=== PATIENT | male | born 1985 | race Two or more races ===

== ENCOUNTER → 2022-07-07 21:09 | Outpatient (REF) | payer MEDICAID, SELFPAY | LOC: HO.SL 21:09 | PROVIDERS: PCP Internal Medicine; Visit Provider Nurse Practitioner Primary Care | DX: R06.83 Snoring (principal); R06.81 Apnea, not elsewhere classified; R51.9 Headache, unspecified | CPT/HCPCS: 95811 ==

== ENCOUNTER → 2022-09-21 14:40 | Outpatient (BNVA) | payer MEDICAID, SELFPAY | PROVIDERS: PCP Internal Medicine; Visit Provider Nurse Practitioner Family | DX: G47.33 Obstructive sleep apnea (adult) (pediatric) (principal) | CPT/HCPCS: 99202 ==

== ENCOUNTER 2022-11-28 08:32 | Outpatient (REF) | payer MEDICAID, SELFPAY ==
[2022-11-28 11:45] LABS: MANUAL DIFF FLAG NO
[2022-11-28 11:58] LABS: Basophils Absolute Auto 0.1 X10*3/uL (0.0-0.2); Basophils Percent Auto 0.5 % (0-2); Eosinophils Absolute Auto 0.2 X10*3/uL (0.0-0.4); Eosinophils Percent Auto 2.2 % (0-4); Hematocrit 43.7 % (42.0-52.0); Hemoglobin 14.2 g/dl (14.0-18.0); Imm Gran Abs Auto 0.08 X10*3/uL (0.00-0.03); Imm Gran Pct Auto 0.8 % (0.0-0.4); Lymphocytes Absolute Auto 2.5 X10*3/uL (1.2-4.9); Lymphocytes Percent Auto 24.2 % (20-40); Mean Corpuscular HGB Conc 32.5 g/dl (31.0-36.0); Mean Corpuscular Hemoglobin 26.9 pg (27.0-33.0); Mean Corpuscular Volume 82.9 fL (80.0-98.0); Mean Platelet Volume 12.5 fL (9.4-12.4); Monocytes Absolute Auto 0.8 X10*3/uL (0.1-1.2); Monocytes Percent Auto 7.8 % (2-11); Neutrophils Absolute Auto 6.7 x10*3/uL (2.0-8.3); Neutrophils Percent Auto 64.5 % (45-73); Platelet Count 216 X10*3/uL (160-400); Red Blood Count 5.27 X10*6/uL (4.60-5.80); Red Cell Distribution Width 14.1 % (11.0-16.0); White Blood Count 10.4 X10*3/uL (4.8-10.8)
[2022-11-28 12:28] LABS: Alanine Aminotransferase 68 U/L (0-40); Albumin Level 4.1 g/dL (3.5-5.0); Alkaline Phosphatase 53 U/L (39-117); Anion Gap 13 (12-20); Aspartate Amino Transferase 40 U/L (5-37); Bilirubin Direct 0.2 mg/dL (0.0-0.5); Bilirubin Total 0.6 mg/dL (0.0-1.0); Blood Urea Nitrogen 11 mg/dL (9-16); Calcium 9.3 mg/dL (8.4-10.2); Carbon Dioxide 24 mmol/L (22-29); Chloride 102 mmol/L (96-108); Cholesterol 216 mg/dL (<200); Estimated Glomerular Filt Rate > 60; Glucose Random 123 mg/dL (60-115); HDL Cholesterol 38 mg/dL (>40); LDL Cholesterol Calculated 155 mg/dL (<100); Potassium 3.9 mmol/L (3.3-5.1); Sodium 135 mmol/L (135-145); Triglycerides 118 mg/dL (<150)
[2022-11-28 12:31] LABS: TSH reflex Free T4 1.04 uIU/mL (0.32-4.0)
[2022-11-28 13:03] LABS: Creatinine Urine 38.19 mg/dL; Microalbumin Urine < 5.0 mg/L
[2022-11-29 07:58] LABS: ~HepC Num1 0.16 S/CO (0.00-0.79); ~Hepatitis C Antibody Nonreactive (Nonreactive)
[2022-11-29 15:44] LABS: HIV RNA PCR Qn Copies NOT DETECTED copies/mL (NOT DETECTED); HIV RNA PCR Qn Log Copies NOT DETECTED (NOT DETECTED)
== END 2022-11-28 08:33 | disposition home or self-care (01) ==
LOC: HO.HHCL 08:32
PROVIDERS: Visit Provider Internal Medicine
DX: E11.65 Type 2 diabetes mellitus with hyperglycemia (principal)
CPT/HCPCS: 36415; 80048; 80061; 80076; 82043; 84443; 85025; 86803; 87536

== ENCOUNTER 2023-02-06 11:16 | Outpatient (AMB) | payer MEDICAID, SELFPAY ==
--- NOTE | 2023-02-06 11:20 | A.OFFVIS_ITS ---
Intake Vital Signs 02/06/23 11:22 Height 5 ft 11 in Weight 298 lb BMI 41.6 BP 132/62 Blood Pressure Location Lt brachial Position Sitting Pulse 97 Pulse Source Pulse Oximeter Pulse Oximetry (%) 97 Oxygen Delivery Method Room Air Intake Visit Reasons: 3M severe sleep apnea - Confirmed Intake Note: F/U BENEDICTO, asking for a new nasal mask Manager Distribution Required: No Allergies No Known Allergies Allergy (Verified 02/06/23 11:21) HPI HPI Comments History of Present Illness Details 37 y/o male patient presents for follow up of BENEDICTO on CPAP. He is on CPAP at [id number]. Pt reports he has small nasal mask and it is much comfortable and he sleeps better with it. He wakes up refreshed and feel much awake and not tired during daytime. The CPAP compliance and therapy response (01/07/23-02/05/23) reviewed. The usage days 93% and the average usage hours 4 hrs and 40 min. The AHI was 2.0/hr. He was sick for couple of days and could not use CPAP because of congestion. He changes his filter every two weeks and clean mask and tubing regularly. [facility] Family History Mother Diabetes Social History (Updated 02/06/23 @ 11:22 by Denise Pelayo CMA) Alcohol intake: never Patient Tobacco Use Status: Never used Tobacco Physical Exam Vital Signs: Last Vital Signs Pulse 97 02/06/23 11:22 BP 132/62 02/06/23 11:22 Pulse Ox 97 02/06/23 11:22 Oxygen Delivery Method Room Air 02/06/23 11:22 BMI result Body Mass Index 41.6 Const General: cooperative Nutritional Appearance: obese Orientation/consciousness: patient oriented x3 Neck Neck: Yes full ROM and Yes supple Resp Effort & Inspection: normal respiratory effort and able to speak in complete sentences Neuro General: patient oriented x3, gait normal and moves all extremities Cranial nerves: Yes Normal facial strength present, Yes Midline tongue present, Yes Symmetric palate elevation present, Yes Ability to bilaterally rotate head present and Yes Ability to bilaterally elevate shoulders present Cognition (Neuro): normal cognition Gait exam (Neuro): Normal gait present Motor exam (neuro): 5/5 motor strength present throughout, Pronator motor function not present and no tremor noted Psych Appearance: grossly normal Mental Status: mental status grossly normal Speech and movement: Normal speech and movement present Affect: normal affect Attitude: cooperative Assessment & Plan Assessment & Plan (1) BENEDICTO on CPAP: Comment: Severe degree of sleep apnea. The AHI was 70/hr and oxygen brian was 82%. Code(s): G47.33 - Obstructive sleep apnea (adult) (pediatric) Plan Continue to use CPAP at [id number] as patient experiences good clinical effects. Stressed compliance, use CPAP nightly and more than 4 hours. Wt reduction advised. Coding Level of Care Code Est Pt Level 3 (44273) Diagnoses BENEDICTO on CPAP G47.33
[2023-02-06 11:22] VITALS: BP 132/62; PULSE 97; O2SAT 97; BMI 41.6
== END 2023-02-06 11:36 | disposition home or self-care (01) ==
PROVIDERS: PCP Internal Medicine; Visit Provider Nurse Practitioner Family
DX: G47.33 Obstructive sleep apnea (adult) (pediatric) (principal)
CPT/HCPCS: 99213

== ENCOUNTER → 2023-02-06 11:16 | Outpatient (BNVA) | payer MEDICAID, SELFPAY | PROVIDERS: PCP Internal Medicine; Visit Provider Nurse Practitioner Family | DX: G47.33 Obstructive sleep apnea (adult) (pediatric) (principal) | CPT/HCPCS: 99212 ==

== ENCOUNTER 2024-02-21 14:44 | Outpatient (AMB) | payer OTHER, SELFPAY ==
--- NOTE | 2024-02-21 14:48 | A.OFFVIS_ITS ---
Vital Signs 02/21/24 14:50 Height 5 ft 11 in Weight 286 lb BMI 39.9 BP 130/82 Blood Pressure Location Rt brachial Position Sitting Intake Visit Reasons: 1 yr f/u - BENEDICTO Intake Note: Patient presents for BENEDICTO Allergies No Known Allergies Allergy (Verified 02/21/24 14:49) HPI Comments Details: 37 y/o male patient presents for follow up of BENEDICTO on CPAP. He is on CPAP at [id number]. Pt reports he has small nasal mask and it is much comfortable and he sleeps better with it. He wakes up refreshed and feel much awake and not tired during daytime. The CPAP compliance and therapy response (11/23/23-02/20/24) reviewed. The usage days 97% and the average usage hours 7 hrs and 29 min. The AHI was 0.9/hr. He changes his filter every two weeks and clean mask and tubing regularly. Glipizide and metformin in one combo pill 600mg (metformin + Glipizide)= Metaglip Ozempic 1x week .25 lost 10lbs over 1 month, he is working on weight reduction. Walking daily, 30min, otherwise he is doing well. PFSH Family History Mother Diabetes Social History Alcohol intake: never Patient Tobacco Use Status: Never used Tobacco Review of Systems Const All systems reviewed & are unremarkable except as noted in HPI and below Physical Exam Vital Signs: Last Vital Signs BP 130/82 02/21/24 14:50 BMI result Body Mass Index 39.9 Const General: cooperative, comfortable and no acute distress Nutritional Appearance: obese (patient lost 10 lbs in one month.) Orientation/consciousness: patient oriented x3 Eyes Pupils: Equal, round and reactive pupils present Neck Neck: Yes full ROM Resp Effort & Inspection: normal respiratory effort and able to speak in complete sentences Neuro General: patient oriented x3 Cranial nerves: Yes CN's II-XII intact bilaterally, Yes Facial sensation intact/muscles of mastication intact, Yes Equal, round and reactive pupils pre sent, Yes Normal accommodation reflex present, Yes Midline tongue present, Yes Symmetric palate elevation present, Yes Ability to bilaterally rotate head present and Yes Ability to bilaterally elevate shoulders present Gait exam (Neuro): Normal gait present Motor exam (neuro): 5/5 motor strength present throughout Deep tendon reflexes (DTR's): Right triceps reflex intensity grade: 2+, Left triceps reflex intensity grade: 2+, Rt Biceps (C5, C6): 2+, Left biceps reflex intensity grade: 2+, Right brachioradialis reflex intensity grade: 2+, Left brachioradialis reflex intensity grade: 2+, Right patellar reflex intensity grade: 2+ and Left patellar reflex intensity grade: 2+ Coordination: [id number] test normal Results Reviewed Results Reviewed: CPAP use: 02/2024 The usage days 97% and the average usage hours 7 hrs and 29 min. The AHI was 0.9/hr. Autoset pressures [id number]. Assessment & Plan Assessment & Plan (1) BENEDICTO on CPAP: Comment: Severe degree of sleep apnea. The AHI was 70/hr and oxygen brian was 82%. Code(s): G47.33 - Obstructive sleep apnea (adult) (pediatric) Category: Medical (2) Obesity (BMI 30-39.9): Code(s): E66.9 - Obesity, unspecified Category: Medical Plan: Plan BENEDICTO patient is on CPAP and compliant with his nightly use, cleans his equipment. HTN is managed with 2 medications. T2DM managed by Metaglip, per PcP. Obesity Patient advised to reduce Caloric intake BMI is 39.9, he has lost 10lbs in one month on Ozempic. Walks daily for 30min, meal prep. Pt seen by Anahi RING in coordination w/ myself PEG Victoria- VENUS, I agree with the above documentation and plan. Coding Level of Care Code Est Pt Level 3 (60848) Diagnoses BENEDICTO on CPAP G47.33 Obesity (BMI 30-39.9) E66.9
[2024-02-21 14:50] VITALS: BP 130/82; BMI 39.9
== END 2024-02-21 15:21 | disposition home or self-care (01) ==
PROVIDERS: PCP Internal Medicine; Visit Provider Physician Assistant Medical
DX: G47.33 Obstructive sleep apnea (adult) (pediatric) (principal); E66.9 Obesity, unspecified; Z68.39 Body mass index [BMI] 39.0-39.9, adult
CPT/HCPCS: 99213

== ENCOUNTER → 2024-02-21 14:44 | Outpatient (BNVA) | payer OTHER, SELFPAY | PROVIDERS: Absent Provider Physician Assistant Medical; PCP Internal Medicine; Visit Provider Psychiatry & Neurology Neurology | DX: G47.33 Obstructive sleep apnea (adult) (pediatric) (principal); E66.9 Obesity, unspecified; Z99.89 Dependence on other enabling machines and devices | CPT/HCPCS: 99212 ==

== ENCOUNTER 2024-07-23 08:18 | Outpatient (REF) | payer OTHER, SELFPAY ==
[2024-07-23 12:25] LABS: Alanine Aminotransferase 39 U/L (0-40); Albumin Level 4.2 g/dL (3.5-5.0); Alkaline Phosphatase 51 U/L (39-117); Anion Gap 10 (12-20); Aspartate Amino Transferase 30 U/L (5-37); Bilirubin Total 0.6 mg/dL (0.0-1.0); Blood Urea Nitrogen 13 mg/dL (9-16); Calcium 9.5 mg/dL (8.4-10.2); Carbon Dioxide 30 mmol/L (22-29); Chloride 101 mmol/L (96-108); Cholesterol 224 mg/dL (<200); Estimated Glomerular Filt Rate > 60; Glucose Random 103 mg/dL (60-115); HDL Cholesterol 46 mg/dL (>40); LDL Cholesterol Calculated 154 mg/dL (<100); Potassium 4.6 mmol/L (3.3-5.1); Sodium 136 mmol/L (135-145); Total Protein 8.3 g/dL (6.5-8.0); Triglycerides 122 mg/dL (<150)
[2024-07-23 12:26] LABS: Creatinine Urine 101.63 mg/dL; Microalbum/Creatinine Ratio Ur 18.6 ug/mg cr (<30)
== END 2024-07-23 08:19 | disposition home or self-care (01) ==
LOC: HO.HHCL 08:18
PROVIDERS: Visit Provider Internal Medicine
DX: I10 Essential (primary) hypertension (principal); E11.65 Type 2 diabetes mellitus with hyperglycemia
CPT/HCPCS: 36415; 80053; 80061; 82043; 82570

== ENCOUNTER 2025-03-02 15:16 | Outpatient (AMB) | payer OTHER, SELFPAY ==
--- NOTE | 2025-03-02 15:26 | MHC.OFFVIS ---
Vital Signs 03/02/25 15:30 Weight 276 lb BP 140/84 H Blood Pressure Location Lt brachial Position Sitting Pulse 101 H Pulse Source Pulse Oximeter Pulse Oximetry (%) 95 Oxygen Delivery Method Room Air Intake Visit Reasons: 1 yr f/u - BENEDICTO Information Officer Required: No Accompanied by: Self / Same As Patient Allergies No Known Allergies Allergy (Verified 03/02/25 15:31) HPI Comments Details: 39 y/o male presents for follow up of BENEDICTO on CPAP therapy. BENEDICTO compliance report (01/2025- 01/2025) reviewed with pt. The usage days 90/90 days and 100%, average use is hours 7 hrs and 13 min. Press are [id number] and Leaks [id number], AHI 0.9/hr He washes his mask, rinses the hoses, changes filters and fills reservoir with water. Pt reports since switching to the nasal pillows he sleeps more comfortably and the quality of his sleep has improved. He wakes up refreshed and feel much awake and not tired during daytime. He has T2DM managed with metformin 500mg po BID and Ozempic 1x/week. He is motivated to lose weight, walks for 30min daily. Drinks plenty of water. Mood is pleasant. Memory is stable. Denies morning headaches, RLS symptoms, parasomnias, acid reflux, bruxism. PFSH Family History Mother Diabetes Social History Alcohol intake: never Patient Tobacco Use Status: Never used Tobacco Physical Exam Vital Signs: Last Vital Signs Pulse 101 H 03/02/25 15:30 BP 140/84 H 03/02/25 15:30 Pulse Ox 95 03/02/25 15:30 Oxygen Delivery Method Room Air 03/02/25 15:30 Const General: cooperative, comfortable and no acute distress Nutritional Appearance: obese (patient lost 10 lbs in one month.) Orientation/consciousness: patient oriented x3 Eyes Pupils: Equal, round and reactive pupils present Neck Neck: Yes full ROM Resp Effort & Inspection: normal respiratory effort and able to speak in complete sentences Neuro General: patient oriented x3 and moves all extremities Cranial nerves: Yes CN's II-XII intact bilaterally, Yes Facial sensation intact/muscles of mastication intact, Yes Equal, round and reactive pupils present, Yes Normal accommodation reflex present, Yes Midline tongue present, Yes Symmetric palate elevation present, Yes Ability to bilaterally rotate head present and Yes Ability to bilaterally elevate shoulders present Gait exam (Neuro): Normal gait present Motor exam (neuro): 5/5 motor strength present throughout Deep tendon reflexes (DTR's): Right triceps reflex intensity grade: 2+, Left triceps reflex intensity grade: 2+, Rt Biceps (C5, C6): 2+, Left biceps reflex intensity grade: 2+, Right brachioradialis reflex intensity grade: 2+, Left brachioradialis reflex intensity grade: 2+, Right patellar reflex intensity grade: 2+ and Left patellar reflex intensity grade: 2+ Coordination: [id number] test normal Psych Appearance: grossly normal Thought process: Normal thought process present Results Reviewed Results Reviewed: BENEDICTO compliance report (01/2025- 01/2025) reviewed with pt. The usage days 90/90 days and 100%, average use is hours 7 hrs and 13 min. Press are [id number] and Leaks [id number], AHI 0.9/hr He washes his mask, rinses the hoses, changes filters and fills reservoir with water. Assessment & Plan Assessment & Plan (1) BENEDICTO on CPAP: Comment: Severe degree of sleep apnea. The AHI was 70/hr and oxygen brian was 82%. Code(s): G47.33 - Obstructive sleep apnea (adult) (pediatric) Category: Medical (2) Obesity (BMI 30-39.9): Code(s): E66.9 - Obesity, unspecified Category: Medical Plan: Plan BENEDICTO patient is on CPAP and compliant and has good refreshed sleep. T2DM managed with metformin, HTN managed with 2 BP meds, per pcp. BMI is elevated, will refer to weight management for consultation if amenable. Obesity Patient advised to reduce caloric intake BMI is 39.9, he has lost 10lbs in one month on Ozempic. Walks daily for 30min, meal prep. Patient Instructions: Sleep Hygiene provided: set a scheduled bedtime and wake time to help regulate the circadian rhythm and balance the release of pituitary hormones. Sleep in a dark room, temperatures below 68 degrees, and no devices n bed. Limit caffeinated products 6 hours prior to bed, and limit fluids 2-4 hours prior to bed. Gentle night yoga, diffusing essential oils, and playing soft music can be relaxing. Coding Level of Care Code Est Pt Level 4 (90534) Diagnoses BENEDICTO on CPAP G47.33 Obesity (BMI 30-39.9) E66.9
[2025-03-02 15:30] VITALS: BP 140/84; PULSE 101; O2SAT 95
--- OUTSIDE RECORDS SUMMARY | 2025-03-02 18:22 | XMS_ITS | Encounter Summary ---
Author Organization [employer] Address [address] [facility] [address] [place] [address] Care Team Providers Care Web Development Intern Name Role Phone Mercedes Ku MD Primary Care Provide r Encounter Details Date Type Department Care Team (Latest Contact Info) Description 11/13/2018 [facility] CONVERSIONS Dental, Provider, DDS Social History Tobacco Use Types Packs/Day Years Used Date Smoking Tobacco: Never Assessed Sex and Gender Information Value Date Recorded Sex Assigned at Male 01/30/2022 10:32 AM EDT Legal Sex Male 10:32 AM EDT Gender Identity Male 01/30/2022 10:32 AM EDT Sexual Orientation Straight 01/30/2022 10 :32 AM EDT documented as of this encounter Plan of Treatment Not on file documented as of this encounter Visit Diagnoses Not on filedocumented in this encounter Care Teams Web Development Intern Relationship Specialty Start Date End Date Mercedes Ku MD [address] [place] [id number] PCP - General Family Medicine 09/16/19 documented as of this encounter
--- OUTSIDE RECORDS SUMMARY | 2025-03-02 18:22 | XMS_ITS | Encounter Summary ---
Author Organization [employer] Address [address] [facility] [address] [place] [address] Care Team Providers Care Marine Mammal Trainer Name Role Phone Mercedes Ku MD Primary Care Provide r Encounter Details Date Type Department Care Team (Latest Contact Info) Description 03/09/2021 Abstract [facility] CONVERSIONS Dental, Provider, DDS Social [...] on filedocumented in this encounter Care Teams Marine Mammal Trainer Relationship Specialty Start Date End Date Mercedes Ku MD [address] [place] [id number] PCP - General Family Medicine 09/16/19 documented as of this encounter
--- OUTSIDE RECORDS SUMMARY | 2025-03-02 18:23 | XMS_ITS | Encounter Summary ---
Author Organization [employer] Address [address] [place] [address] Care Team Providers Care Airframe And Power Plant Mechanic Name Role Phone Mercedes Ku MD Primary Care Provide r Reason for Visit * Reason Comments Med Refill Encounter Details Date Type Department Care Team (Late st Contact Info) Description 03/26/2023 Refill [facility] [address] [place] [address] Mercedes Ku MD [address] [place] [address] Diabetes mellitus type 2 in obese (CMS/HCC) ; Allergic rhinitis, unspecified seasonality, unspecified trigger Social History Tobacco Use Types Packs/Day Years Used Date Smoking Tobacco: Never Passive Smoke Exposure: Never Smokeless Tobacco: Never Alcohol Use Standard Drinks/Week Comments Yes 0 (1 standard drink = 0.6 oz pur e alcohol) oca PHQ-2 Answer Date Recorded Patient Health Questionnaire-2 Score 0 09/11/2022 Housing Stability Answer Date Recorded What is your housing situation today? I am not s ure 01/16/[address] you li ve. Do you have problems with any of the following? None of the above 01/16/2023 Food Insecurity Answer Date Recorded Within the past 12 months, y ou worried that your food would run out before you got money to buy more: Never True 01/16/2023 Within the past 12 months,th e food you bought just didn't last and you didn't have enough money to get more: Never True Transportation Answer Date Recorded In the past 12 months, has l ack of transportation kept you from medical appts, meetings, work or from getting things needed for daily living? No 01/16/2023 Utilities Answer Date Recorded In the past 12 months, has t he electric, gas, oil or water company threatened to shut off services in your home? No 01/16/2023 Depression Answer Date Recorded Patient Health Questionnaire-2 Score 0 09/11/2022 Sex and Gender Information Value Date Recorded Sex Assigned at Male 01/30/2022 10:32 AM EDT Legal Sex Male 10:32 AM EDT Gender Identity Male 01/30/2022 10:32 AM EDT Sexual Orientation Straight 01/30/2022 10 :32 AM EDT documented as of this encounter Plan of Treatment Not on file documented as of this encounter Visit Diagnoses Diagnosis Diabetes mellitus type 2 in obese Type II or unspecified type diabetes mellitus without mention of complication, not stated as uncontrolled Allergic rhinitis, unspecified seasonality, unspecified trigger documented in this encounter Care Teams Airframe And Power Plant Mechanic Relationship Specialty Start Date End Date Mercedes Ku MD [address] [place] [address] PCP - General Family Medicine 09/16/19 documented as of this encounter
--- OUTSIDE RECORDS SUMMARY | 2025-03-02 18:23 | XMS_ITS | Encounter Summary ---
Author Organization [employer] Address [address] [place] [address] Care Team Providers Care Steam Hoist Operator Name Role Phone Mercedes Ku MD Primary Care Provide r Encounter Details Date Type Department Care Team ([facility] st Contact Info) Description 08/21/2024 Orders Only [facility] [address] [place], [place] [phone] Mercedes Ku MD [address] [place] [address] Social History Tobacco Use Types Packs/Day Years Used Date Smoking Tobacco: Never Passive Smoke Exposure: Never Smokeless Tobacco: Never Alcohol Use Standard Drinks/Week Comments Yes 0 (1 standard drink = 0.6 oz pur e alcohol) oca Alcohol Answer Date Recorded Frequency of Alcohol Consumption Not on file 01/30/2024 Average Number of Drinks Not on file 024 Frequency of Binge Drinking Not on file 01/02 Score 0 01/30/2024 Depression Answer Date Recorded Patient Health Questionnaire-9 Score 0 01/30/2024 Patient Health Questionnaire-9 Score 0 01/30/2024 Last PHQ-9: Questionnaire Data Not on file 1 Housing Stability Answer Date Recorded What is your housing situation today? I have mandy simental 01/30/[address] you li ve. Do you have problems with any of the following? None of the above 01/30/2024 Food Insecurity Answer Date Recorded Within the past 12 months, y ou worried that your food would run out before you got money to buy more: Never True 01/30/2024 Within the past 12 months,th e food you bought just didn't last and you didn't have enough money to get more: Never True Transportation Answer Date Recorded In the past 12 months, has l ack of transportation kept you from medical appts, meetings, work or from getting things needed for daily living? No 01/30/2024 Utilities Answer Date Recorded In the past 12 months, has t he electric, gas, oil or water company threatened to shut off services in your home? No 01/30/2024 Depression Answer Date Recorded Patient Health Questionnaire-2 Score 0 01/30/2024 Internet Access Answer Date Recorded Internet Access Q1 No 01/30/2024 Internet Access Q2 I do not want or need it 01/02 Sex and Gender Information Value Date Recorded Sex Assigned at Male 01/30/2022 10:32 AM EDT Legal Sex Male 10:32 AM EDT Gender Identity Male 01/30/2022 10:32 AM EDT Sexual Orientation Straight 01/30/2022 10 :32 AM EDT documented as of this encounter Plan of Treatment Not on file documented as of this encounter Visit Diagnoses Not on filedocumented in this encounter Additional Health Concerns Assessment Noted Time PHQ-9 Depression Total Score: 0 01/30/20 24 11:02 AM EDT documented as of this encounter Care Teams Steam Hoist Operator Relationship Specialty Start Date End Date Mercedes Ku MD [address] [place] [address] PCP - General Family Medicine 09/16/19 documented as of this encounter
--- OUTSIDE RECORDS SUMMARY | 2025-03-02 18:23 | XMS_ITS | Encounter Summary ---
Author Organization [employer] Address [address] [facility] [address] [place] [address] Care Team Providers Care Degree Clerk Name Role Phone Mercedes Ku MD Primary Care Provide r Reason for Visit * Reason Onset Date Comments Med Refill 02/03/2025 Encounter Details Date Type Department Care Team (Late st Contact Info) Description 02/03/2025 Refill [facility] [address] [place] [address] Mercedes Ku MD [address] [place] [address] Type 2 diabetes mellitus with hyperglycemia, without long-term current use of insulin (HCC) Social History Tobacco Use Types Packs/Day Years [...] Date Recorded Patient Health Questionnaire-9 Score 0 02/05/2025 Patient Health Questionnaire-9 Score 0 02/05/2025 Last PHQ-9: Questionnaire Data Not on file 1 04/07/2024 Housing Stability Answer Date Recorded What is [...] Date Recorded Patient Health Questionnaire-2 Score 0 02/05/2025 Internet Access Answer Date Recorded Internet Access Q1 No 01/30/2024 Internet Access Q2 I do not want or need it 01/02 Sex and Gender Information Value Date Recorded Sex Assigned at Male 01/30/2022 10:32 AM EDT Legal Sex Male 10:32 AM EDT Gender Identity Male 01/30/2022 10:32 AM EDT Sexual Orientation Straight 01/30/2022 10 :32 AM EDT documented as of this encounter Functional Status * Over the past 2 weeks, how often have you been bothered by any of the following problems? Question Answer Date of Assessment Author Patient Health Questionnaire-2 Score 0 08/2024 9:16 AM Divina Sampson [place] * Little interest or pleasure in doing things Answer Date of Assessment Author Not at all 02/05/2025 9:16 AM Ishan Sampson ra, [place] * Feeling down, depressed, or hopeless Answer Date of Assessment Author Not at all 02/05/2025 9:16 AM Ishan Sampson ra, [place] * Trouble falling or staying asleep, or sleeping too much Answer Date of Assessment Author Not at all 02/05/2025 9:16 AM Ishan Sampson ra, [place] * Feeling tired or having little energy Answer Date of Assessment Author Not at all 02/05/2025 9:16 AM Ishan Sampson ra, [place] * Poor appetite or overeating Answer Date of Assessment Author Not at all 02/05/2025 9:16 AM Ishan Sampson ra, [place] * Feeling bad about yourself - or that you are a failure or have let yourself or your family down Answer Date of Assessment Author Not at all 02/05/2025 9:16 AM Ishan Sampson ra, [place] * Trouble concentrating on things, such as reading the newspaper or watching television Answer Date of Assessment Author Not at all 02/05/2025 9:16 AM Ishan Sampson ra, [place] * Moving or speaking so slowly that other people could have noticed? Or the opposite - being so fidgety or restless that you have been moving around a lot more than usual. Answer Date of Assessment Author Not at all 02/05/2025 9:16 AM Ishan Sampson ra, [place] * Thoughts that you would be better off or hurting yourself in some way Answer Date of Assessment Author Not at all 02/05/2025 9:16 AM Ishan Sampson ra, [place] * Patient Health Questionnaire-9 Score Answer Date of Assessment Author 0 02/05/2025 9:16 AM Ishan Sampson ra, [place] * Over the last 2 weeks, how often have you been bothered by any of the following problems? Question Answer Date of Assessment Author Feeling nervous, anxious, or on edge 0 08/2024 9:17 AM Divina Sampson MA Not being able to stop or co ntrol worrying 0 02/05/2025 9:17 AM Divina Sampson MA Worrying too much about diff erent things 0 02/05/2025 9:17 AM Divina Sampson [place] Trouble relaxing 0 02/05/2025 9:17 AM Divina Seaman MA Being so restless that it is hard to sit still 0 02/05/2025 9:17 AM Divina Sampson [place] Becoming easily annoyed or irritable 0 08/2024 9:17 AM Divina Sampson MA Feeling afraid as if somethi ng awful might happen 0 02/05/2025 9:17 AM Divina Sampson MA JOSE-7 Total Score 0 02/05/2025 9:17 AM Divina Sampson [place] documented as of this encounter Plan of Treatment Not on file documented as of this encounter Visit Diagnoses Diagnosis Type 2 diabetes mellitus with hyperglycemia, without long-term current use of insulin (HCC) documented in this encounter Additional Health Concerns Assessment Noted Time PHQ-9 Depression Total Score: 0 01/30/20 24 11:02 AM EDT documented as of this encounter Care Teams Degree Clerk Relationship Specialty Start Date End Date Mercedes Ku MD [address] [place] [address] PCP - General Family Medicine 09/16/19 documented as of this encounter
--- OUTSIDE RECORDS SUMMARY | 2025-03-02 18:23 | XMS_ITS | Encounter Summary ---
Author Organization [employer] Address [address] [facility] [address] [place] [address] Care Team Providers Care Inside Sales Account Manager Name Role Phone Mercedes Ku MD Primary Care Provide r Reason for Visit * Reason Comments Med Refill Encounter Details Date Type Department Care Team (Late st Contact Info) Description 02/03/2025 Refill [facility] [address] [place], [place] [phone] Mercedes Ku MD [address] [place] [address] Type 2 diabetes mellitus with hyperglycemia, without [...] documented as of this encounter Care Teams Inside Sales Account Manager Relationship Specialty Start Date End Date Mercedes Ku MD [address] [place] [address] PCP - General Family Medicine 09/16/19 documented as of this encounter
--- OUTSIDE RECORDS SUMMARY | 2025-03-02 18:23 | XMS_ITS | Encounter Summary ---
Author Organization [employer] Address [address] [facility] [address] [facility] [address] [place] [address] Care Team Providers Care Hydraulic Lift Driver Name Role Phone Mercedes Ku MD Primary Care Provide r Reason for Visit * Reason Onset Date Comments Med Refill 08/21/2024 Encounter Details Date Type Department Care Team (Late st Contact Info) Description 08/21/2024 Refill [facility] [address] [place] [address] Mercedes Ku MD [address] [place] [address] Type 2 diabetes mellitus with hyperglycemia, without long-term current use of insulin ([facility]) Social History Tobacco Use Types Packs/Day Years [...] documented as of this encounter Care Teams Hydraulic Lift Driver Relationship Specialty Start Date End Date Mercedes Ku MD [address] [place] [address] PCP - General Family Medicine 09/16/19 documented as of this encounter
--- OUTSIDE RECORDS SUMMARY | 2025-03-02 18:23 | XMS_ITS | Clinical Summary ---
Author Organization [employer] Address [address] [facility] 7[address] [place] [address] Care Team Providers Care Bread Wrapper Operator Name Role Phone Mercedes Ku MD Primary Care Provide r Allergies No known active allergies Medications * This document contains information received from the source organization and may not represent a complete record from that organization. fluticasone (Flonase) 50 MCG/ACT nasal sprayIndication s:Allergic rhinitis, unspecified seasonality, unspecified trigger SPRAY 1 SPRAY INTO EACH NOSTRIL IN THE MORNING 48 mL 06/28/19 24 Active cyclobenzaprine (Flexeril) 10 MG tabletIndicatio ns:Acute bilateral low back pain, unspecified whether sciatica present Take 1 tablet (10 mg) by mouth 3 times daily for 10 days. 30 tablet 01/30/20 24 Active hydroCHLOROthia zide (HYDRODiuril) 50 MG tabletIndicatio ns:Primary hypertension TAKE 1 TABLET BY MOUTH EVERY MORNING 90 tablet 1 03/27/20 24 Active metFORMIN (Glucophage) 500 MG tabletIndicatio ns:Type 2 diabetes mellitus with hyperglycemia, without long-term current use of insulin (HCC) Take 1 tablet (500 mg) by mouth with breakfast and with evening meal. 60 tablet 1 04/24/19 25 026 Active atorvastatin (Lipitor) 20 MG tabletIndicatio ns:Dyslipidemia Take 1 tablet (20 mg) by mouth Once per day. 90 tablet 1 11/04/19 25 026 Active Tirzepatide (Mounjaro) 7.5 MG/0.5ML solution auto-injectorIn dications:Type 2 diabetes mellitus with hyperglycemia, without long-term current use of insulin (HCC) Inject 7.5 mg under the skin 1 (one) time per week. 2 mL 1 02/05/20 25 Active losartan (Cozaar) 100 MG tabletIndicatio ns:Primary hypertension Take 1 tablet (100 mg) by mouth Once per day. 90 tablet 1 02/06/20 25 Active glipiZIDE XL (Glucotrol XL) 10 MG 24 hr tabletIndicatio ns:Type 2 diabetes mellitus with hyperglycemia, without long-term current use of insulin (HCC) Take 1 tablet (10 mg) by mouth Once per day. Do not crush, chew, or split. 30 tablet 11 02/06/20 25 026 Active losartan (Cozaar) 100 MG tablet TAKE 1 TABLET BY MOUTH EVERY DAY 90 tablet 1 08/28/19 25 025 Discontinued(Re order (will not trigger notification to Pharmacy)) Tirzepatide (Mounjaro) 5 MG/0.5ML solution auto-injectorIn dications:Type 2 diabetes mellitus with hyperglycemia, without long-term current use of insulin (HCC) Inject 5 mg under the skin 1 (one) time per week. 2 mL 12/24/19 25 025 Discontinued Active Problems Problem Noted Date Diagnosed Date Dyslipidemia 07/24/2024 Assessment & Plan (07/24/2024 1:04 PM EDT): I will start patient on atorvastatin 20 mg daily Acquired trigger finger 07/24/2024 Assessment & Plan (07/24/2024 1:03 PM EDT): I will refer patient to hand specialist Left foot pain 01/30/2024 Acute bilateral low back pain 01/30/2024 Anxiety 01/30/2024 Assessment & Plan (04/25/2024 3:46 PM EST): Stable, continue with same interventions Class 3 severe obesity due t o excess calories with serious comorbidity and body mass index (BMI) of 40.0 to 44.9 in adult 07/04/2023 Assessment & Plan (02/05/2025 9:47 AM EST): Extensive counseling about healthy diet and exercise done today Continue with Mounjaro 7.5 mg weekly with plan of increasing the dose next month He will come to office in about 6 to 8 weeks for weight monitoring and side effect monitoring Assessment & Plan (07/24/2024 1:04 PM EDT): Extensive counseling about healthy diet exercise done today, I will also go up on Ozempic this will achieve both better glucose readings and possibly weight reduction Assessment & Plan (01/30/2024 12:52 PM EDT): Today extensive discussion was done about life style modifications I advise healthy diet (low calorie) and cardiovascular exercise Assessment & Plan (07/04/2023 10:33 AM EDT): Today extensive discussion was done about life style modifications I advise healthy diet (low calorie) and cardiovascular exercise Allergic rhinitis 01/05/2023 BENEDICTO on CPAP 09/11/2022 Assessment & Plan (04/25/2024 3:46 PM EST): Continue to use CPAP machine every night Continue with weight loss journey Assessment & Plan (04/04/2023 1:43 PM EST): Patient is following with sleep medicine c/w CPAP [id number] , he uses his machine every night Assessment & Plan (09/12/2022 4:39 PM EDT): Continue to use CPAP every night Type 2 diabetes mellitus 05/08/2022 Assessment & Plan (02/05/2025 9:46 AM EST): - Lab Results Component Value Date HGBA1C 6.4 (A) 11/03/2024 HGBA1C 6.4 (A) 04/24/2024 HGBA1C 7.1 (A) 01/30/2024 - Lab Results Component Value Date MICROALBUR 19.0 07/23/2024 CREATININE 0.78 07/23/2024 -Changes: Went up on Mounjaro to 7.5 mg weekly, continue with metformin 500 mg once a day and glipizide 10 mg daily plan is to continue increasing Mounjaro and decrease and discontinue metformin and glipizide - Diabetic eye exam: Up-to-date - Diabetic foot exam: Pending - Continue lifestyle modifications - RTC 6-8 weeks Assessment & Plan (11/03/2024 5:13 PM EDT): Diabetes is: controlled - Lab Results Component Value Date HGBA1C 6.4 (A) 11/03/2024 HGBA1C 6.4 (A) 04/24/2024 HGBA1C 7.1 (A) 01/30/2024 - Lab Results Component Value Date MICROALBUR 19.0 07/23/2024 CREATININE 0.78 07/23/2024 -Changes: I will switch patient from ozempic to Mounjaru - Diabetic eye exam:up to date - Diabetic foot exam:up to date - Continue lifestyle modifications - Continue current medications - Follow up: 3 months Assessment & Plan (07/24/2024 1:04 PM EDT): I will go up on his Ozempic to 1 mg weekly Assessment & Plan (04/25/2024 3:45 PM EST): I will increase his Ozempic to 2 mg weekly I will discontinue his Metaglip and instead put him on metformin only 500 mg twice a day Counseling about diabetic diet and exercise done Assessment & Plan (01/30/2024 12:54 PM EDT): Diabetes is: almost at goal - Lab Results Component Value Date HGBA1C 7.1 (A) 01/30/2024 HGBA1C 6.5 (A) 07/04/2023 HGBA1C 7.5 (A) 04/04/2023 - Lab Results Component Value Date MICROALBUR <5.0 11/28/2022 CREATININE 0.75 11/28/2022 -Changes: I change his medications now he is on metformin/glipizide 500/5mg BID and I discontinue Trulicity and put him on ozempic - Diabetic eye exam:up to date - Diabetic foot exam:referral today - Continue lifestyle modifications - Continue current medications - Follow up: 3 months Assessment & Plan (07/04/2023 10:32 AM EDT): Diabetes is: controlled - Lab Results Component Value Date HGBA1C 6.5 (A) 07/04/2023 HGBA1C 7.5 (A) 04/04/2023 HGBA1C 7.5 (A) 01/05/2023 - Lab Results Component Value Date MICROALBUR <5.0 11/28/2022 CREATININE 0.75 11/28/2022 -Changes: none - Diabetic eye exam:up to date - Diabetic foot exam:pending - Continue lifestyle modifications - Continue current medications - Follow up: 3 months Assessment & Plan (04/04/2023 1:42 PM EST): - Lab Results Component Value Date HGBA1C 7.5 (A) 04/04/2023 HGBA1C 7.5 (A) 01/05/2023 HGBA1C 6.8 (A) 09/11/2022 - Lab Results Component Value Date MICROALBUR <5.0 11/28/2022 CREATININE 0.75 11/28/2022 - - Diabetic eye exam:referral today - Diabetic foot exam:pending - Continue lifestyle modifications A1c is not at goal it is my medical opinion patient will benefit form starting semaglutide, this will help reach A1c goal - Assessment & Plan (01/05/2023 1:15 PM EDT): - Lab Results Component Value Date HGBA1C 7.5 (A) 01/05/2023 HGBA1C 6.8 (A) 09/11/2022 HGBA1C 9.4 (H) 03/09/2020 - Lab Results Component Value Date MICROALBUR <5.0 11/28/2022 CREATININE 0.75 11/28/2022 - Continue lifestyle modifications - Continue current medications Assessment & Plan (09/12/2022 4:39 PM EDT): - Lab Results Component Value Date HGBA1C 6.8 (A) 09/11/2022 HGBA1C 9.4 (H) 03/09/2020 - Lab Results Component Value Date MICROALBUR 1.9 09/30/2021 - Diabetic eye exam: pending - Diabetic foot exam:pending - Continue lifestyle modifications - Continue current medications - Transaminitis 10/16/2017 Acanthosis nigricans 06/20/2017 Hypercholesterolemia 06/20/2017 Vitamin D deficiency 06/20/2017 Hypertensive disorder 03/08/2017 Assessment & Plan (02/05/2025 9:47 AM EST): Stable continue with same medication regimen and low-sodium diet Today refill for losartan 100 mg daily Assessment & Plan (01/30/2024 12:51 PM EDT): C/w same medication regimen C/w low Na diet Assessment & Plan (07/04/2023 10:32 AM EDT): - Aerobic exercise to reduce BP. Initial goal of 30 min walk 3-5x/week. Increase as tolerated. - low-sodium diet (goal: <2g/day) and heart healthy diet such as DASH to reduce BP and prevent ASCVD. - Home BP monitoring 1-2 x day with goal of <140/90. - Seek immediate medical attention for chest pain, palpitations, SOB, syncope, or sudden changes in mental status. - Do not change or discontinue current prescriptions without first consulting health care provider Assessment & Plan (04/04/2023 1:44 PM EST): - Aerobic exercise to reduce BP. Initial goal of 30 min walk 3-5x/week. Increase as tolerated. - low-sodium diet (goal: <2g/day) and heart healthy diet such as DASH to reduce BP and prevent ASCVD. - Home BP monitoring 1-2 x day with goal of <140/90. - Seek immediate medical attention for chest pain, palpitations, SOB, syncope, or sudden changes in mental status. - Do not change or discontinue current prescriptions without first consulting health care provider Assessment & Plan (01/05/2023 1:14 PM EDT): - Aerobic exercise to reduce BP. Initial goal of 30 min walk 3-5x/week. Increase as tolerated. - low-sodium diet (goal: <2g/day) and heart healthy diet such as DASH to reduce BP and prevent ASCVD. - Home BP monitoring 1-2 x day with goal of <140/90. - Seek immediate medical attention for chest pain, palpitations, SOB, syncope, or sudden changes in mental status. - Do not change or discontinue current prescriptions without first consulting health care provider Assessment & Plan (09/12/2022 4:39 PM EDT): - Aerobic exercise to reduce BP. Initial goal of 30 min walk 3-5x/week. Increase as tolerated. - low-sodium diet (goal: <2g/day) and heart healthy diet such as DASH to reduce BP and prevent ASCVD. - Home BP monitoring 1-2 x day with goal of <140/90. - Seek immediate medical attention for chest pain, palpitations, SOB, syncope, or sudden changes in mental status. - Do not change or discontinue current prescriptions without first consulting health care provider Resolved Problems Problem Noted Date Diagnosed Date Resolved Date Impaired fasting glucose 06/20/201708/2022 Encounters Date Type Department Care Team Description 02/20/2025 Telephone [facility] [address] [place] [address] Mercedes Ku MD feb recalls 02/05/2025 9:00 AM EST Telemedicine [facility] [address] [place] [address] Mercedes Ku MD Type 2 diabetes mellitus with hyperglycemia, without long-term current use of insulin (HCC) (Primary Dx); Class 3 severe obesity due to excess calories with serious comorbidity and body mass index (BMI) of 40.0 to 44.9 in adult (HCC); Primary hypertension 02/05/2025 Travel 02/04/2025 Orders Only [facility] [address] [place] [address] Mercedes Ku MD Type 2 diabetes mellitus with hyperglycemia, without long-term current use of insulin (HCC) (Primary Dx) 02/03/2025 Refill [facility] [address] [facility] [place] [place] [address] Mercedes Ku MD Type 2 diabetes mellitus with hyperglycemia, without long-term current use of insulin (HCC) 02/03/2025 Refill [facility] [address] [place] [address] Mercedes Ku MD Type 2 diabetes mellitus with hyperglycemia, without long-term current use of insulin (HCC) 01/29/2025 Travel 12/23/2024 Orders Only [facility] [address] [place] [address] Mercedes Ku MD Type 2 diabetes mellitus with hyperglycemia, without long-term current use of insulin (CMS/HCC) (Primary Dx) 12/09/2024 Telephone [facility] [address] [place] [address] Mercedes Ku MD NOV RECALL from Last 3 Months Immunizations Immunization Administration Dates Next Due Influenza injectable quadriv alent IIV4 with preservative 03/08/2017 Influenza injectable quadrivalent preservative f ree 01/05/2023,02/09/2022 Pfizer Covid-19 Vaccine 12+ 07/29/2020 Pneumococcal Conjugate PCV 20 07/04/2023 Family History Medical History Relation Name Comments Diabetes Maternal Grandfather Diabetes Mother Relation Name Status Comments Maternal Grandfather Mother Social History Tobacco Use Types Packs/Day Years Used Date Smoking Tobacco: Never Passive Smoke Exposure: Never Smokeless Tobacco: Never Tobacco Cessation:Counseling Given: Not Answered Alcohol Use Standard Drinks/Week Comments Yes 0 [...] Orientation Straight 01/30/2022 10 :32 AM EDT Last Filed Vital Signs Vital Sign Reading Time Taken Comments Blood Pressure 134/90 11/03/2024 1:18 PM EDT Pulse 88 11/03/2024 1:18 PM EDT Temperature 35.6 C (96 F) 11/03/2024 1:18 PM EDT Respiratory Rate 20 11/03/2024 1:18 PM EDT Oxygen Saturation 96% 04/24/2024 9:12 AM EST Inhaled Oxygen Concentration - - Weight 135 kg (297 lb) 11/03/2024 1:18 PM EDT Height 180.3 cm (5' 11 ) 11/03/2024 1:18 PM EDT Body Mass Index 41.42 11/03/2024 1:18 PM EDT Plan of Treatment Health Maintenance Due Date Last Done Comments Diabetes: Foot Exam 1994 Family Planning (PISQ) 10/02/1999 HPV Vaccines (1 - Male 3-dose series) 10/02/1999 DTaP/Tdap/Td Vaccines (1 - Tdap) 10/02/2003 Hepatitis B Vaccines (1 of 3 - 19+ 3-dose series) 10/02/2003 SDOH Screening 01/29/2025 01/30/2024 Diabetes: Hemoglobin A1C 05/06/2025 025, 04/24/2024, 01/30/2024, Additional history exists Eye Exam 05/30/2025 05/31/2023, 05/04, 05/31/2023, Additional history exists Diabetes: Urine Protein Screening 07/23/2025 07/23/2024, 11/28/2022, 09/30/2021 Disability Screening 07/23/2025 07/23/2024 Lipid Panel 07/23/2025 07/23/2024, 11/01, 09/30/2021, Additional history exists Tobacco Screening 11/03/2025 11/03/2024 Alcohol/Substance Use Screening 02/05/2026 02/05/2025 Depression Screening 02/05/2026 02/05/2025, 02/06/20 25 Zoster Vaccines (1 of 2) 2034 RSV Patients and Patients Aged 60 years or older (1 - 1-dose 75+ series) 10/02/2059 HIV Screening Completed 11/28/2022 Hepatitis C Screening Completed 11/28/2022 Pneumococcal Vaccine: Pediatrics (0 to 5 Years) and At-Risk Patients (6 to 49) Years Completed 07/04/2023 COVID-19 Vaccine Completed 01/27/2025, , 01/13/2023, Additional history exists Influenza Vaccine Completed 01/27/2025, , 01/05/2023, Additional history exists HIB Vaccines Aged Out No longer eligi ble based on patient's age to complete this topic Hepatitis A Vaccines Aged Out No long er eligible based on patient's age to complete this topic IPV Vaccines Aged Out No longer eligi ble based on patient's age to complete this topic Meningococcal B Vaccine Aged Out No l onger eligible based on patient's age to complete this topic Meningococcal Vaccine Aged Out No meng marylin eligible based on patient's age to complete this topic RSV under 20 months Aged Out No longe r eligible based on patient's age to complete this topic Rotavirus Vaccines Aged Out No longer eligible based on patient's age to complete this topic Goals Goal Patient Goal Type Associated Problems Recent Progress Patient-Stated? Author Help patients manage their type 2 diabetes Care Plan Help patients manage their type 2 diabetes No Heiss, Divina, [place] Weekly blood pressure task Care Plan Weekly blood pressure task No Divina Duran MA Help patients manage their type 2 diabetes Care Plan Help patients manage their type 2 diabetes No Divina Duran MA Patient has chronic kidney disease Care Plan Patient has chronic kidney disease No Divina Duran MA Weekly blood pressure task Care Plan Weekly blood pressure task No Divina Duran MA Patient has chronic kidney disease Care Plan Patient has chronic kidney disease No Divina Duran MA Procedures Procedure Name Priority Date/Time Associated Diagnosis Comments POCT GLYCATED HEMOGLOBIN, TOTAL Routine 11/03/2024 1:20 PM EDT Type 2 diabetes mellitus with hyperglycemia, without long-term current use of insulin ([facility]) ALBUMIN, RANDOM URINE W/CREATININE Routine 07/23/2024 8:20 AM EDT Type 2 diabetes mellitus with hyperglycemia, without long-term current use of insulin ([facility]) LIPID PANEL, STANDARD Routine 07/23/2024 8:20 AM EDT Primary hypertension HEPATITIS C ANTIBODY REFLEX Routine 11/28/2022 8:37 AM EDT Type 2 diabetes mellitus with hyperglycemia, without long-term current use of insulin ([facility]) HIV 1 RNA, QUANTITATIVE REAL TIME PCR Routine 11/28/2022 8:37 AM EDT Type 2 diabetes mellitus with hyperglycemia, without long-term current use of insulin ([facility]) from Last 3 Months or Most Recently Relevant to Health Maintenance Results * (ABNORMAL) POCT HGB A1C (11/03/2024 1:20 PM EDT) Hemoglobin A1C 6.4(A) 4.0 - 5.7 % QC Media Lot # [id number] Lot# Expiration Date Blood 11/03/2024 1:20 PM EDT us Mercedes Cooper MD POINT OF CARE TEST EN TER/EDIT ORDERABLES Final Result * Albumin, Random Urine W/Creatinine (07/23/2024 8:20 AM EDT) Creatinine, Urine 101.63 mg/dL [facility] Microalbumin Urine 19.0 mg/L [facility] Microalbum Creatinine Ratio Ur 18.6 <30 ug/mg cr [facility] Comment:Albumin/Creatinine R atio Reference Ranges: Normal: < 30 ug/mg creatinine Microalbuminuria: 30 - 300 ug/mg creatinineClinical Albuminuria: > 300 ug/mg creatinine Urine (Urine, Random) 07/23/2024 8:20 AM EDT 07/23/2024 11:22 AM EDT us Mercedes Cooper MD LAB URINE ORDERABLES Final Result [facility] [address] [place] [phone] * (ABNORMAL) Lipid Panel, Standard (07/23/2024 8:20 AM EDT) Triglycerides 122 <150 mg/dL [facility] Comment:Desirable Triglyceri de: less than 150 mg/dLBorderline High Triglyceride 150-199 mg/dLHigh Triglyceride: 200-499 mg/dLVery High Triglyceride: greater than or equal to 5OO mg/dL Cholesterol 224(H) <200 mg/dL [facility] Comment:Desirable Cholestero l: less than 200 mg/dLBorderline High Cholesterol: 200-239 mg/dLHigh Cholesterol: greater than 239 mg/dL LDL Cholesterol Calculated 154(H) <100 mg/dL [facility] Comment:Desirable LDL: less than 100 mg/dLNear Optimal/Above Optimal LDL: 110- 129 mg/dLBorderline High LDL: 130-159 mg/dLHigh LDL: 160-189 mg/dLVery High LDL: greater than or equal to 190 mg/dL HDL Cholesterol 46 >40 mg/dL [facility] Comment:Desirable HDL: great er than 40 mg/dL Note: This HDL assay may give artificially low results in patients with liver disease. Blood Venous blood specimen / Unknown 07/23/2024 8:20 AM EDT 07/23/2024 11:27 AM EDT Mercedes Cooper MD LAB BLOOD ORDERABLES Final Result Performing Organization Address [facility] Co de Phone Number [facility] [address] [place] [phone] * Hepatitis C Antibody Reflex (11/28/2022 8:37 AM EDT) Pathologist [facility] Hepatitis C Antibody Nonreactive Nonreactive [facility] Comment:Antibodies to HCV no t detected; does not exclude early acuteHCV infection. 11/28/2022 8:37 AM EDT 11/28/2022 11:38 AM EDT Mercedes Cooper MD LAB BLOOD ORDERABLES Final Result Performing Organization Address [facility] Co de Phone Number [facility] [address] [place] [phone] * HIV-1 RNA, Quantitative, Real-Time PCR (11/28/2022 8:37 AM EDT) [facility] HIV RNA PCR Qn Copies NOT DETECTED NOT DETECTED copies/mL [facility] HIV RNA PCR Qn Log Copies NOT DETECTED NOT DETECTED [facility] Comment:Result Units: Log co pies/mLThis test was performed using Real-Time Polymerase ChainReaction.Reportable Range: 20 copies/mL to 10,000,000 copies/mL(1.30 log copies/mL to 7.00 log copies/mL).THIS TEST WAS PERFORMED AT:[employer] [address] [id number] THEODORE MD 11/28/2022 8:37 AM EDT 11/28/2022 11:38 AM EDT us Mercedes Cooper MD LAB BLOOD ORDERABLES Final Result [facility] [address] [place] [phone] from Last 3 Months or Most Recently Relevant to Health Maintenance Additional Health Concerns Active Problems Noted Date Diagnosed Date Help patients manage their type 2 diabetes 02/20 Weekly blood pressure task 02/20/2025 Help patients manage their type 2 diabetes 02/20 Patient has chronic kidney disease 02/20/2025 Weekly blood pressure task 02/20/2025 Patient has chronic kidney disease 02/20/2025 Insurance [employer] Care Teams Bread Wrapper Operator Relationship Specialty Start Date End Date Mercedes Ku MD [address] [place] [address] PCP - General Family Medicine 09/16/19
--- OUTSIDE RECORDS SUMMARY | 2025-03-02 18:23 | XMS_ITS | Encounter Summary ---
Author Organization [employer] Address [address] [facility] 7t [place] [address] Care Team Providers Care Local Combination Truck Driver Name Role Phone Mercedes Ku MD Primary Care Provide r Reason for Visit * Reason Comments Med Refill Encounter Details Date Type Department Care Team (Late st Contact Info) Description 2023 Refill [facility] [address] [place] [address] Uzma Pandey MD [address] [place] [address] Social History Tobacco Use Types Packs/Day Years [...] on filedocumented in this encounter Care Teams Local Combination Truck Driver Relationship Specialty Start Date End Date Mercedes Ku MD [address] [place] [address] PCP - General Family Medicine 09/16/19 documented as of this encounter
--- OUTSIDE RECORDS SUMMARY | 2025-03-02 18:23 | XMS_ITS | Data Portability ---
Author Organization [facility] [id number] Address [address] [place] [address] Assessment No assessment recorded. Plan of Treatment Reminders Order Date Submit Date Provider Last Modified By Organization Details Last Modified Time Details Appointments None recorded. Lab None recorded. Referral None recorded. Procedures None recorded. Surgeries None recorded. Imaging None recorded. Medication Orders Aplisol 5 tub. unit/0.1 mL intradermal injection solution 2023 024 [email or web address] Not available 10:08:52 Patient TargetsNo targets recorded. Patient InstructionsNo instructions recorded. Reason for Referral None Reported. Medical Equipment None Reported. Medications Name Sig Start Date Stop Date Status Note LastModified by Organization Details LastModified Time hydrochlor othiazide 50 mg tablet TAKE 1 TABLET BY MOUTH EVERY MORNING active Not Available Not Available No t Available Aplisol 5 tub. unit/0.1 mL intraderma l injection solution Inject 0.1 mL by intraderm al route. 2023 active Billable units for PPD is one. Units are not the dose. Not Available Not Available Not Available metformin 850 mg tablet TAKE 1 TABLET BY MOUTH TWICE A DAY WITH BREAKFAST AND DINNER active Not Available Not Available No t Available glipizide ER 2.5 mg tablet, extended release 24 hr TAKE 1 TABLET BY MOUTH EVERY DAY WITH BREAKFAST active Not Available Not Available No t Available hydrochlor othiazide 25 mg tablet TAKE 1 TABLET BY MOUTH EVERY DAY IN THE MORNING active Not Available Not Available No t Available losartan 100 mg tablet TAKE 1 TABLET BY MOUTH EVERY DAY active Not Available Not Available No t Available fluticason e propionate 50 mcg/actuat ion nasal spray,susp ension SPRAY 1 SPRAY INTO EACH NOSTRIL IN THE MORNING active Not Available Not Available No t Available hydrochlor othiazide 12.5 mg tablet TAKE 1 TABLET BY MOUTH EVERY DAY active Not Available Not Available No t Available Trulicity 0.75 mg/0.5 mL subcutaneo us pen injector INJECT 0.75 MG UNDER THE SKIN 1 (ONE) TIME PER WEEK. active Not Available Not Available No t Available Vitals None Recorded Social History None recorded. Functional Status None recorded. Mental Status None recorded. Family History Nothing Reported. Medical History No medical history recorded. Past Encounters Encounter ID Performer Location Encounter Start Date Encounter Closed Date Diagnosis/Indication Diagnosis SNOMED-CT Code Diagnosis ICD10 Code Diagnosis IMO Codes Diagnosis Note [id number] [facility]ONATH[facility] Kirk [id number] [facility] [address] [facility] [place] [phone] 12/18/2023 09:44:37 12/18/2023 10:04:14 Tuberculosis screening 016384432 Z11.1 Health Concerns Section Related Observation LastModified by Organization Detai ls LastModified Time None Recorded Concern Status LastModified by Organization Details LastModified Time None Recorded Advance Directives Directive None Recorded Payers Insurance Date Sequence Insurance Name Policy Number Policy Claderon Covered Member ID Calderon Member ID Guarantor Name 12/18/2023 [employer] [place] [facility] [employer] [place]
--- OUTSIDE RECORDS SUMMARY | 2025-03-02 18:23 | XMS_ITS | Clinical Summary ---
Author Organization [address] [place] [address] Address [address] [place] [address] Phone Care Team Providers Care Tattooer Name Role Phone Mercedes Ku MD Primary Care Provide r Allergies No known active allergies Medications No known medications Social History Tobacco Use Types Packs/Day Years Used Date Smoking Tobacco: Never Assessed Sex and Gender Information Value Date Recorded Sex Assigned at Not on file Legal Sex Male 11:15 AM EST Gender Identity Not on file Sexual Orientation Not on file Last Filed Vital Signs Vital Sign Reading Time Taken Comments Blood Pressure - - Pulse - - Temperature - - Respiratory Rate - - Oxygen Saturation - - Inhaled Oxygen Concentration - - Weight 130 kg (286 lb) 08/29/2024 8:02 AM EDT Height 180.3 cm (5' 10.98 ) 08/29/2024 8:02 AM E DT Body Mass Index 39.91 08/29/2024 8:02 AM EDT Plan of Treatment Health Maintenance Due Date Last Done Comments Diabetes: Annual Foot Exam 1994 Diabetes: Annual Retina Eye Exam 1994 DTaP,Tdap,and Td Vaccines (1 - Tdap) 10/02/2003 Hepatitis B Vaccines (1 of 3 - 19+ 3-dose series) 10/02/2003 HPV Vaccines (1 - 3-dose SCDM series) 10/02/2011 Hepatitis C Screening 02/06/2024 Social Influencers of Health Screening 02/06/2024 Depression Screening 04/02/2024 Diabetes: Annual Urine Albumin-Creatinine Ratio (uACR) 05/19/2024 Diabetes: Blood Sugar Control Test (HGBA1C) 10/22/2024 04/24/2024 COVID-19 Vaccine ( season) 2024 12/31/2023, 01/13/2023, 02/16/2022, Additional history exists Influenza Vaccine (#1) 2024 , 01/05/2023, 02/09/2022, Additional history exists Diabetes: Annual GFR (Glomerular Filtration Rate) 07/23/2025 07/23/2024 Hypertension/CHF/CAD Annual BMP Blood Test 07/23/2025 07/23/2024 Cholesterol Screening (Lipid Panel) 07/23/2029 07/23/2024, 11/28/2022 RSV Immunization Adult Patients (1 - 1-dose 75+ series) 10/02/2059 HIV Screening Completed 11/28/2022 Pneumococcal Vaccine: Pediatrics (0 to 5 Years) and At-Risk Patients (6 to 49 Years) Completed 07/04/2023 HIB Vaccines Aged Out No longer eligi ble based on patient's age to complete this topic Hepatitis A Vaccines Aged Out No long er eligible based on patient's age to complete this topic IPV Vaccines Aged Out No longer eligi ble based on patient's age to complete this topic MMR Vaccines Aged Out No longer eligi ble based on patient's age to complete this topic Meningococcal ACWY Vaccine Aged Out N o longer eligible based on patient's age to complete this topic Meningococcal B Vaccine Aged Out No l onger eligible based on patient's age to complete this topic RSV Immunization Patients Under 20 months Aged Out No longer eligible based on patient's age to complete this topic Varicella Vaccines Aged Out No longer eligible based on patient's age to complete this topic Insurance , [address] [id number] [employer] Care Teams Tattooer Relationship Specialty Start Date End Date Mercedes Ku MD [address] [place] [phone] PCP - General Internal Medicine 08/21/24
--- OUTSIDE RECORDS SUMMARY | 2025-03-02 18:23 | XMS_ITS | Encounter Summary ---
Author Organization [employer] Address [address] [place] [address] Care Team Providers Care Antique Clocks Repairer Name Role Phone Mercedes Ku MD Primary Care Provide r Reason for Visit * Reason Comments Med Change Request Encounter Details Date Type Department Care Team (Late st Contact Info) Description 06/28/2023 Refill [facility] [address] [place] [address] Mercedes Ku MD [address] [place] [address] Allergic rhinitis, unspecified seasonality, unspecified trigger Social [...] as of this encounter Visit Diagnoses Diagnosis Allergic rhinitis, unspecified seasonality, unspecified trigger documented in this encounter Care Teams Antique Clocks Repairer Relationship Specialty Start Date End Date Mercedes Ku MD [address] [place] [phone] PCP - General Family Medicine 09/16/19 documented as of this encounter
== END 2025-03-02 15:59 | disposition home or self-care (01) ==
LOC: HO.HSMS 15:20
PROVIDERS: PCP Internal Medicine; Visit Provider Physician Assistant Medical
DX: G47.33 Obstructive sleep apnea (adult) (pediatric) (principal); E66.9 Obesity, unspecified
CPT/HCPCS: 99214